=== PATIENT | male | born 1965 | race African-American/Black ===

== ENCOUNTER 2017-01-27 17:35 | Emergency (ER) | payer OTHER ==
[~2017-01-27] VITALS: Ht 188 cm; Wt 111.1 kg
--- NOTE | ~2017-01-27 | EKG ---
[address] [employer] [place] [address] ELECTROCARDIOGRAM REPORT Name: AYO MEJIA Room #: DEP LUX Miller#: [id number] Admission: 01/27/17 Attend Phys: Discharge: 01/27/17 Date of : 65 Report #: [id number] THIS REPORT FOR: //name// [facility] ED Test Date: 2017-01-27 Test Time: 17:42:58 Pat Name: AYO MEJIA Department: Room: Gender: Before School: [employer] : 1965 Requested By: Yanet Roth Order Number: [id number] MD: Richie Montes Measurements Intervals [place] Rate: 69 P: 31 HI: 187 QRS: 3 QRSD: 98 T: 21 QT: 389 QTc: 417 Interpretive Statements Sinus rhythm No significant abnormality Compared to ECG 09/05/2013 07:02:50 Sinus bradycardia no longer present Electronically Signed On 01-28-2017 7:29:57 CDT by Richie Montes [email or web address] <ELECTRONICALLY SIGNED> By: Richie Montes MD, [facility] 01/28/17 0729 [id number] Richie Montes MD, FACC /EPI
[~2017-01-27 17:35] MED LIST: AMLODIPINE-BEN1 EAC5 PO; BENTYL 10 MG CA10 M1 PO; NOHOMEMEDICATIONS
[2017-01-27] MEDS ORDERED: NORCO 5-325 TA1 EACH PO (18:13)
[2017-01-27 19:07] VITALS: BP 169/100
== END 2017-01-27 19:12 | disposition home or self-care (01) ==
LOC: ER 17:35
DX: M25.512 Pain in left shoulder (principal); M75.102 Unspecified rotator cuff tear or rupture of left shoulder, not specified as traumatic; I10 Essential (primary) hypertension; F10.99 Alcohol use, unspecified with unspecified alcohol-induced disorder

== ENCOUNTER 2017-07-23 19:32 | Emergency (ER) | payer OTHER ==
[~2017-07-23] VITALS: Ht 188 cm; Wt 111.1 kg
--- NOTE | ~2017-07-23 | EKG ---
[address] [place] [place] [address] ELECTROCARDIOGRAM REPORT Name: AYO MEJIA Room #: DEP LUX Miller#: [id number] Admission: 07/23/17 Attend Phys: Discharge: 07/23/17 Date of : 65 Report #: [id number] THIS REPORT FOR: //name// [facility] ED Test Date: 2017-07-23 Test Time: 19:54:48 Pat Name: AYO MEJIA Department: Room: Gender: Closing Supervisor: : 1965 Requested By: [place] Order Number: [id number] MD: Richie Montes Measurements Intervals [place] Rate: 79 P: 29 MI: 199 QRS: 23 QRSD: 98 T: 7 QT: 382 QTc: 438 Interpretive Statements Sinus rhythm Borderline T abnormalities, inferior leads Baseline wander in lead(s) II Compared to ECG 01/27/2017 17:42:58 No significant change was found Electronically Signed On 07-24-2017 8:21:28 CDT by Richie Montes [email or web address] <ELECTRONICALLY SIGNED> By: Richie Montes MD, [facility] 07/24/17 08 53 53 Richie Montes MD, FAC /EPI
[~2017-07-23 19:32] MED LIST changes: +NORCO 5-325 TA1 EACH PO
[2017-07-23 20:32] LABS: ABSOLUTE NEUTROPHILS 3.6 thou/uL (1.4-8.2); BASOPHILS 0.4 % (0.0-2.0); EOSINOPHILS 1.8 % (0.0-3.0); HEMATOCRIT 39.8 % (42.0-52.0); HEMOGLOBIN 13.6 gm/dL (14.0-18.0); LYMPHOCYTES 28.5 % (24.0-44.0); MCH 30.2 pg (26.0-34.0); MCHC 34.1 g/dL (28.0-37.0); MCV 88.5 fL (80.0-100.0); MONOCYTES 6.2 % (1.0-8.0); PLATELET COUNT 177 thou/uL (150-400); POLYS 63.1 % (36.0-66.0); RBC 4.49 mil/uL (4.50-6.00); RDW 14.4 % (10.5-14.5); WBC 5.7 thou/uL (4.0-11.0)
[2017-07-23 20:36] LABS: ANION GAP 9 mmol/L (7-16); BUN 15 mg/dL (7-18); CHLORIDE 106 mmol/L (98-107); CO2 25 mmol/L (21-32); CREATININE 1.1 mg/dL (0.7-1.3); GLUCOSE 116 mg/dL (74-106); POTASSIUM 3.2 mmol/L (3.5-5.1); SODIUM 140 mmol/L (136-145)
[2017-07-23 20:45] LABS: TROPONIN-I < 0.04 ng/mL (<0.06)
== END 2017-07-23 23:44 | disposition home or self-care (01) ==
LOC: ER 19:32
PROVIDERS: Emergency Medicine
DX: R07.9 Chest pain, unspecified (principal); R20.2 Paresthesia of skin; I10 Essential (primary) hypertension; Z96.642 Presence of left artificial hip joint